=== PATIENT | male | born 1960 | race Caucasian/White ===

== ENCOUNTER 2016-07-06 19:29 | Emergency (ER) | payer BC ==
[~2016-07-06] VITALS: Ht 165.1 cm; Wt 88.0 kg
[~2016-07-06 19:29] MED LIST: LEVO137T2 PO; PANT20TA2 PO
[2016-07-06 19:30] VITALS: BP 176/103; PULSE 92; RESP 18; TEMP 98.1; O2SAT 98
[2016-07-06] MEDS ORDERED: SODIUM CHLOR 0.9% 1000 ML INJ 1,000 ML IV SCH (23:45)
[2016-07-06] MEDS ORDERED: ONDANSETRON HCL 4 MG/2 ML VIAL IVP ONE (23:45)
[2016-07-06] MEDS ORDERED: KETOROLAC TROMETHAMINE 30 MG/ML (IVP) VIAL IVP ONE (23:45)
[2016-07-07 00:32] LABS: BASOPHIL % 0.3 % (0.0-2.0); EOSINOPHIL % 0.4 % (0.0-4.0); HEMO FLAGS DIFF FINAL; LYMPH % 12.4 % (9.0-44.0); LYMPHOCYTE # 1.3 TH/MM3 (1.0-4.8); MEAN CELL VOLUME 86.6 FL (80.0-100.0); MEAN CORPUSCULAR HEMOGLOBIN 30.2 PG (27.0-34.0); MEAN CORPUSCULAR HGB CONC 34.9 % (32.0-36.0); MONO % 4.5 % (0.0-8.0); NEUT % 82.4 % (16.0-70.0); PLATELET COUNT 372 TH/MM3 (150-450); RED BLOOD COUNT 4.97 MIL/MM3 (4.50-5.90); RED CELL DISTRIBUTION WIDTH 12.9 % (11.6-17.2); WHITE BLOOD COUNT 10.9 TH/MM3 (4.0-11.0)
[2016-07-07 00:59] LABS: ALKALINE PHOSPHATASE 155 U/L (45-117); APTT (PATIENT) 32.2 SEC (24.3-30.1); INTERNATIONAL NORMALIZED RATIO 0.9 RATIO; PROTHROMBIN TIME - PATIENT 10.4 SEC (9.8-11.6); TOTAL BILIRUBIN ADULT 0.3 MG/DL (0.2-1.0)
[2016-07-07 01:41] LABS: ALT (GPT) 65 U/L (12-78); ANION GAP 6 MEQ/L (5-15); AST (GOT) 38 U/L (15-37); BICARBONATE 30.7 MEQ/L (21.0-32.0); BLOOD UREA NITROGEN 13 MG/DL (7-18); CHLORIDE 103 MEQ/L (98-107); GLOMERULAR FILTRATION RATE 63 ML/MIN (>89); POTASSIUM 4.1 MEQ/L (3.5-5.1); SODIUM (NA) 140 MEQ/L (136-145)
[2016-07-07] MEDS ORDERED: IOHEXOL 350 MG/ML 10 ML VIAL (for RAD DIAG) IV ONE (02:10)
--- NOTE | 2016-07-07 02:35 | RADRPT ---
EXAM DATE/TIME: 07/07/2016 02:09 [facility] COMPARISON: CT ABDOMEN & PELVIS W CONTRAST, July 18, 2010, 1:09. INDICATIONS : Left sided pain for 3 days. Vomiting today. IV CONTRAST: 95 cc Omnipaque 350 (iohexol) IV ORAL CONTRAST: No oral contrast ingested. RADIATION DOSE: 13.38 CTDIvol (mGy) MEDICAL HISTORY : Graves disease. SURGICAL HISTORY : Cholecystectomy. ENCOUNTER: Initial ACUITY: 1 day PAIN SCALE: 5/10 LOCATION: Left abdomen TECHNIQUE: Volumetric scanning of the abdomen and pelvis was performed. Using automated exposure control and ad justment of the mA and/or kV according to patient size, radiation dose was kept as low as reasonably achievable to obtain optimal diagnostic quality images. FINDINGS: LOWER LUNGS: The visualized lower lungs are clear. LIVER: Liver is slightly fatty infiltrated. No focal hepatic lesion seen. Previous cholecystectomy. SPLEEN: Normal size without lesion. PANCREAS: Within normal limits. KIDNEYS: Several small peripelvic cysts are again seen on the right, unchanged. ADRENAL GLANDS: Within normal limits. VASCULAR: There is no aortic aneurysm. BOWEL/MESENTERY: There is severe colitis of the descending colon, especially the mid to distal portion. There are dive rticula present. No abscess, perforation or obstruction. There is a small hiatal hernia. ABDOMINAL WALL: Within normal limits. RETROPERITONEUM: There is no lymphadenopathy. BLADDER: No wall thickening or mass. REPRODUCTIVE: Within normal limits. INGUINAL: There is no lymphadenopathy or hernia. MUSCULOSKELETAL: No acute bony abnormality demonstrated. CONCLUSION: 1. Acute colitis of the descending colon which is appears to be on the basis of diverticulitis. There is considerable wall thickening without a discrete mass. After resolution of the acute symptoms and if not done recently, colonoscopy is suggested. No abscess, perforation or obstruction. 2. Slight fatty infiltration of the liver. 3. Cholecystectomy since the prior CT. 4. Small peripelvic cysts of the right kidney unchanged. 5. Small hiatal hernia Chad Beasley MD on July 07, 2016 at 2:28 Board Certified Radiologist. This report was verified electronically.
[2016-07-07] MEDS ORDERED: CIPROFLOXACIN 400 MG PREMIX 200 ML IV ONE (03:00)
[2016-07-07] MEDS ORDERED: metroNIDAZOLE 500 MG INJ 100 ML IV ONE (03:00)
[2016-07-07 03:12] LABS: BLOOD, URINE TRACE (NEG); COMMENT (UR) CULT NOT INDICATED; CULTURE IF INDICATED CULT NOT INDICATED; GLUCOSE,URINE NEG (NEG); KETONE, URINE NEG (NEG); NITRITE,URINE NEG (NEG); PH, URINE 6.5 (5.0-8.5); URINE COLOR YELLOW (YELLW/STRAW)
--- NOTE | 2016-07-07 04:43 | PD ---
HPI Chief Complaint: Flank/Kidney Pain Time Seen by Provider: 23:14 Travel History International Travel<30 days: No Contact w/Intl Traveler<30days: No Traveled to known affect area: No History of Present Illness HPI Patient is a 55 year old male who comes in complaining of left sided abdominal pain. He says it started about 4 days ago. He says he thought it was due to constipation, but it did not improve after he had a bowel movement. He does say that the pain got worse after bowel movement. He had some nausea and vomiting today. He says the pain got worse today so he came in. He tried to look up his symptoms on the Internet and is wondering if he has diverticulitis. He says he has felt feverish, but he is not taken his temperature at home. He denies any chest pain or shortness of breath. PFSH Past Medical History Heart Rhythm Problems: No Cardiac Catheterization: No Cardiovascular Problems: Yes (HEART MURMUR) High Cholesterol: No Congestive Heart Failure: No Diabetes: No Thyroid Disease: Yes (GRAVES DISEASE - HYPOTHYROID) Past Surgical History Cholecystectomy: Yes Coronary Artery Bypass Graft: No Family History Family Myocardial Infarction: Yes (father,,,mild heart attack in his 60's) Social History Alcohol Use: No Tobacco Use: No Substance Use: No Allergies-Medications (Allergen,Severity, Reaction): Coded Allergies: No Known Allergies (Verified , 07/06/16) Reported Meds & Prescriptions Reported Meds & Active Scripts Active Levothyroxine (Levothyroxine Sodium) 137 Mcg Tab 137 Mcg PO DAILY Review of Systems Except as stated in HPI: all other systems reviewed are Neg General / Constitutional: Positive: Fever HENT: No: Headaches, Lightheadedness Cardiovascular: No: Chest Pain or Discomfort Respiratory: No: Shortness of Breath Gastrointestinal: Positive: Nausea, Vomiting, Abdominal Pain, Constipation Genitourinary: No: Dysuria Skin: No Rash, No Change in Pigmentation Physical Exam Narrative GENERAL: Awake and alert in no acute distress. SKIN: Warm and dry. HEAD: Atraumatic. Normocephalic. EYES: Pupils equal and round. No scleral icterus. ENT: Mucous membranes pink and moist. NECK: Trachea midline. No JVD. CARDIOVASCULAR: Regular rate and rhythm. No murmur appreciated. RESPIRATORY: No accessory muscle use. Clear to auscultation. Breath sounds equal bilaterally. GASTROINTESTINAL: Abdomen soft, nondistended. Tender to palpation of the left lower quadrant. No rebound or guarding. MUSCULOSKELETAL: No obvious deformities. No clubbing. No cyanosis. No edema. NEUROLOGICAL: Awake and alert. No obvious cranial nerve deficits. Motor grossly within normal limits. Normal speech. PSYCHIATRIC: Appropriate mood and affect; insight and judgment normal. Data Data Last Documented VS Vital Signs Date Time Temp Pulse Resp B/P Pulse Ox O2 Delivery O2 Flow Rate FiO2 07/06/16 19:30 98.1 92 18 176/103 98 Room Air Orders Complete Blood Count With Diff (07/06/16 23:45) Comprehensive Metabolic Panel (07/06/16 23:45) Prothrombin Time / Inr (Pt) (07/06/16 23:45) Act Partial Throm Time (Ptt) (07/06/16 23:45) Urinalysis - C+S If Indicated (07/06/16 23:45) Ua Includes Microscopic (07/06/16 23:45) Ct Abd/Pel W Iv Contrast(Rout) (07/06/16 23:45) Ondansetron Inj (Zofran Inj) (07/06/16 23:45) Sodium Chlor 0.9% 1000 Ml Inj (Ns 1000 M (07/06/16 23:45) Ketorolac Inj (Toradol Inj) (07/06/16 23:45) Iohexol 350 Inj (Omnipaque 350 Inj) (07/07/16 02:10) Ciprofloxacin 400 Mg Premix (Cipro 400 M (07/07/16 03:00) Metronidazole 500 Mg Inj (Flagyl 500 Mg (07/07/16 03:00) Labs Laboratory Tests Test 07/07/16 07/07/16 00:20 02:20 White Blood Count 10.9 TH/MM3 Red Blood Count 4.97 MIL/MM3 Hemoglobin 15.0 GM/DL Hematocrit 43.0 % Mean Corpuscular Volume 86.6 FL Mean Corpuscular Hemoglobin 30.2 PG Mean Corpuscular Hemoglobin 34.9 % Concent Red Cell Distribution Width 12.9 % Platelet Count 372 TH/MM3 Mean Platelet Volume 8.0 FL Neutrophils (%) (Auto) 82.4 % Lymphocytes (%) (Auto) 12.4 % Monocytes (%) (Auto) 4.5 % Eosinophils (%) (Auto) 0.4 % Basophils (%) (Auto) 0.3 % Neutrophils # (Auto) 9.0 TH/MM3 Lymphocytes # (Auto) 1.3 TH/MM3 Monocytes # (Auto) 0.5 TH/MM3 Eosinophils # (Auto) 0.0 TH/MM3 Basophils # (Auto) 0.0 TH/MM3 CBC Comment DIFF FINAL Differential Comment Prothrombin Time 10.4 SEC Prothromb Time International 0.9 RATIO Ratio Activated Partial 32.2 SEC Thromboplast Time Sodium Level 140 MEQ/L Potassium Level 4.1 MEQ/L Chloride Level 103 MEQ/L Carbon Dioxide Level 30.7 MEQ/L Anion Gap 6 MEQ/L Blood Urea Nitrogen 13 MG/DL Creatinine 1.21 MG/DL Estimat Glomerular Filtration 63 ML/MIN Rate Random Glucose 117 MG/DL Calcium Level 9.4 MG/DL Total Bilirubin 0.3 MG/DL Aspartate Amino Transf 38 U/L (AST/SGOT) Alanine Aminotransferase 65 U/L (ALT/SGPT) Alkaline Phosphatase 155 U/L Total Protein 8.2 GM/DL Albumin 3.5 GM/DL Urine Color YELLOW Urine Turbidity HAZY Urine pH 6.5 Urine Specific [place] 1.019 Urine Protein TRACE mg/dL Urine Glucose (UA) NEG mg/dL Urine Ketones NEG mg/dL Urine Occult Blood TRACE Urine Nitrite NEG Urine Bilirubin NEG Urine Urobilinogen LESS THAN 2.0 MG/DL Urine Leukocyte Esterase NEG Urine RBC 1 /hpf Urine WBC 2 /hpf Urine Amorphous Sediment RARE Microscopic Urinalysis Comment CULT NOT INDICATED MDM Medical Decision Making Medical Screen Exam Complete: Yes Emergency Medical Condition: Yes Differential Diagnosis Colitis versus diverticulitis versus UTI Narrative Course Patient is a 55-year-old male comes in complaining of left lower quadrant abdominal pain. Exam shows tenderness to left lower quadrant on palpation. IV established, labs sent. Patient given IV fluids, Toradol for pain. Labs show no acute abnormalities. CT of the abdomen and pelvis shows severe colitis, likely diverticulitis. Patient given a dose of Cipro and Flagyl here. Will be discharged home with prescriptions for Cipro and Flagyl. Patient advised not to drink alcohol while taking the Flagyl. Advised to take Tylenol or ibuprofen as needed for pain. Advised to increase his fiber to help with constipation. Patient has had a colonoscopy within the past year, which was noted to be normal. He is advised to follow-up with his gardener. Advised to return to the ED as needed for any worsening symptoms. Patient is comfortable with discharge at this time. Diagnosis Primary Impression: Diverticulitis Qualified Code: K57.32 - Diverticulitis of large intestine without perforation or abscess without bleeding Patient Instructions: Diverticulitis (ED), General Instructions Additional Instructions: Increase your fiber intake. Take all of your antibiotics. Take Tylenol or Ibuprofen for pain. Return to the ED for any worsening symptoms. Follow up with your doctors. Scripts Metronidazole (Flagyl)500 Mg Bix125 Mg PO TID 7 Days Ref 0 Prov:Bailey Nogueira MD 07/07/16 Ciprofloxacin (Cipro)500 Mg [id number] Mg PO BID 7 Days Ref 0 Prov:Bailey Nogueira MD 07/07/16 Disposition: 01 DISCHARGE HOME Condition: Stable Bailey Nogueira MD Jul 07, 2016 04:43
[2016-07-07] MEDS ORDERED: METR-1 PO (04:52)
[2016-07-07] MEDS ORDERED: CIPR-9 PO (04:52)
== END 2016-07-07 05:06 | disposition home or self-care (01) ==
LOC: NEPC 19:29
DX: K57.92 Diverticulitis of intestine, part unspecified, without perforation or abscess without bleeding (principal); E03.9 Hypothyroidism, unspecified
CPT/HCPCS: 74177; 80053; 81001; 85025; 85610; 85730; 96365; 96375; 99284; J0744; J1885; J2405; J7030; Q9967

== ENCOUNTER 2017-03-10 04:38 | Emergency (ER) | payer BC, OTHER ==
[~2017-03-10] VITALS: Ht 167.6 cm; Wt 90.0 kg
[~2017-03-10 04:38] MED LIST changes: -PANT20TA2 PO
[2017-03-10 04:41] VITALS: BP 176/105; PULSE 72; RESP 16; O2SAT 96
[2017-03-10] MEDS ORDERED: SODIUM CHLOR 0.9% 1000 ML INJ 1,000 ML IV ONE (05:04)
--- NOTE | 2017-03-10 05:04 | PD ---
HPI Chief Complaint: Flank/Kidney Pain Time Seen by Provider: 04:55 Travel History International Travel<30 days: No Contact w/Intl Traveler<30days: No Traveled to known affect area: No History of Present Illness HPI SUDDEN ONSET PAIN TO LEFT FLANK , [place], 8/10, NONRADIATING, WOKE HIM FROM SLEEP , DENIES HEMATURIA/N/V/D/FEVER/COUGH/, NO ALLEVIATING/AGGRAVATING FACTORS PMHX: GRAVES TX NOW ON SYNTHROID, DIVERTICULITIS PSHX: CHOLECYSTECTOMY AND ESOPHAGEAL DILATION ALL: NKDA PFSH Past Medical History Heart Rhythm Problems: No Cardiac Catheterization: No Cardiovascular Problems: Yes (HTN) High Cholesterol: No Congestive Heart Failure: No Diabetes: No Thyroid Disease: Yes (GRAVES DISEASE - HYPOTHYROID) Past Surgical History Cholecystectomy: Yes Coronary Artery Bypass Graft: No Other Surgery: Yes (ESOPHOGEAL DILATION) Family History Family Myocardial Infarction: Yes (father,,,mild heart attack in his 60's) Social History Alcohol Use: No Tobacco Use: No Substance Use: No Allergies-Medications (Allergen,Severity, Reaction): Coded Allergies: No Known Allergies (Verified , 03/10/17) Reported Meds & Prescriptions Reported Meds & Active Scripts Active Levothyroxine (Levothyroxine Sodium) 137 Mcg Tab 137 Mcg PO DAILY Review of Systems Except as stated in HPI: all other systems reviewed are Neg General / Constitutional: No: Fever Eyes: No: Visual changes HENT: No: Headaches Cardiovascular: No: Chest Pain or Discomfort Respiratory: No: Shortness of Breath Gastrointestinal: No: Abdominal Pain Genitourinary: Positive: Flank Pain Musculoskeletal: No: Pain Skin: No Rash Neurologic: No: Weakness Psychiatric: No: Depression Endocrine: No: Polydipsia Hematologic/Lymphatic: No: Easy Bruising Physical Exam Narrative GENERAL: SKIN: Warm and dry. HEAD: Atraumatic. Normocephalic. EYES: Pupils equal and round. No scleral icterus. No injection or drainage. ENT: No nasal bleeding or discharge. Mucous membranes pink and moist. NECK: Trachea midline. No JVD. CARDIOVASCULAR: Regular rate and rhythm. RESPIRATORY: No accessory muscle use. Clear to auscultation. Breath sounds equal bilaterally. GASTROINTESTINAL: Abdomen soft, non-tender, nondistended. MUSCULOSKELETAL: Extremities without clubbing, cyanosis, or edema. No obvious deformities. NEUROLOGICAL: Awake and alert. No obvious cranial nerve deficits. Motor grossly within normal limits. Five out of 5 muscle strength in the arms and legs. Normal speech. PSYCHIATRIC: Appropriate mood and affect; insight and judgment normal. Data Data Last Documented VS Orders Orders Complete Blood Count With Diff (03/10/17 05:04) Comprehensive Metabolic Panel (03/10/17 05:04) Urinalysis - C+S If Indicated (03/10/17 05:04) Ct Abd/Pel W/O Iv Contrast (03/10/17 05:04) Ecg Monitoring (03/10/17 05:04) Iv Access Insert/Monitor (03/10/17 05:04) Ketorolac Inj (Toradol Inj) (03/10/17 05:15) Morphine Inj (Morphine Inj) (03/10/17 05:15) Ondansetron Inj (Zofran Inj) (03/10/17 05:15) Sodium Chlor 0.9% 1000 Ml Inj (Ns 1000 M (03/10/17 05:04) Lipase (03/10/17 05:04) Ed Discharge Order (03/10/17 06:36) Labs Laboratory Tests Test 03/10/17 05:00 03/10/17 05:10 White Blood Count 8.7 TH/MM3 Red Blood Count 4.97 MIL/MM3 Hemoglobin 15.2 GM/DL Hematocrit 44.2 % Mean Corpuscular Volume 89.1 FL Mean Corpuscular Hemoglobin 30.5 PG Mean Corpuscular Hemoglobin Concent 34.3 % Red Cell Distribution Width 13.3 % Platelet Count 294 TH/MM3 Mean Platelet Volume 7.8 FL Neutrophils (%) (Auto) 49.8 % Lymphocytes (%) (Auto) 35.9 % Monocytes (%) (Auto) 7.5 % Eosinophils (%) (Auto) 6.0 % Basophils (%) (Auto) 0.8 % Neutrophils # (Auto) 4.3 TH/MM3 Lymphocytes # (Auto) 3.1 TH/MM3 Monocytes # (Auto) 0.7 TH/MM3 Eosinophils # (Auto) 0.5 TH/MM3 Basophils # (Auto) 0.1 TH/MM3 CBC Comment DIFF FINAL Differential Comment Blood Urea Nitrogen 11 MG/DL Creatinine 1.26 MG/DL Random Glucose 112 MG/DL Total Protein 7.5 GM/DL Albumin 3.7 GM/DL Calcium Level 8.8 MG/DL Alkaline Phosphatase 72 U/L Aspartate Amino Transf (AST/SGOT) 26 U/L Alanine Aminotransferase (ALT/SGPT) 31 U/L Total Bilirubin 0.3 MG/DL Sodium Level 140 MEQ/L Potassium Level 4.0 MEQ/L Chloride Level 105 MEQ/L Carbon Dioxide Level 27.5 MEQ/L Anion Gap 8 MEQ/L Estimat Glomerular Filtration Rate 60 ML/MIN Lipase 118 U/L Urine Color YELLOW Urine Turbidity HAZY Urine pH 5.0 Urine Specific [place] 1.020 Urine Protein TRACE mg/dL Urine Glucose (UA) NEG mg/dL Urine Ketones NEG mg/dL Urine Occult Blood LARGE Urine Nitrite NEG Urine Bilirubin NEG Urine Urobilinogen LESS THAN 2.0 MG/DL Urine Leukocyte Esterase NEG Urine RBC 98 /hpf Urine WBC 1 /hpf Urine Squamous Epithelial Cells <1 /hpf Urine Renal Epithelial Cells <1 /hpf Urine Bacteria RARE /hpf Urine Hyaline Casts 3 /lpf Urine Mucus MOD /lpf Microscopic Urinalysis Comment CULT NOT INDICATED MDM Medical Decision Making Medical Screen Exam Complete: Yes Emergency Medical Condition: Yes Medical Record Reviewed: Yes Differential Diagnosis PYELONEPHRITIS V KIDNEY STONES V COLITIS V DIVERTICULITIS V SPLEEN Narrative Course UA SHOWED HEMATURIA, CT ABD DID NOT SHOW ANY ACTIVE PASSING STONE, THERE IS A HYPERDENSE STONE LIKE STRUCTURE INSIDE BLADDER RAISING THE POSSIBLITY OF A QUICK TRANSIT KIDNEY STONE. Diagnosis Primary Impression: KIDNEY STONE Disposition: 01 DISCHARGE HOME Condition: Stable Walter Topete MD Mar 10, 2017 05:03
[2017-03-10] MEDS ORDERED: ONDANSETRON HCL 4 MG/2 ML VIAL IV PUSH ONE (05:15)
[2017-03-10] MEDS ORDERED: MORPHINE SULFATE 4 MG/ML INJ IV PUSH ONE (05:15)
[2017-03-10] MEDS ORDERED: KETOROLAC TROMETHAMINE 30 MG/ML (IVP) VIAL IV PUSH ONE (05:15)
[2017-03-10 05:22] LABS: AUTOMATED NEUTROPHIL # 4.3 TH/MM3 (1.8-7.7); BASOPHIL # 0.1 TH/MM3 (0-0.2); BASOPHIL % 0.8 % (0.0-2.0); EOSINOPHIL # 0.5 TH/MM3 (0-0.4); HEMATOCRIT 44.2 % (39.0-51.0); HEMO FLAGS DIFF FINAL; LYMPH % 35.9 % (9.0-44.0); LYMPHOCYTE # 3.1 TH/MM3 (1.0-4.8); MEAN CELL VOLUME 89.1 FL (80.0-100.0); MEAN CORPUSCULAR HEMOGLOBIN 30.5 PG (27.0-34.0); MEAN CORPUSCULAR HGB CONC 34.3 % (32.0-36.0); MONO % 7.5 % (0.0-8.0); NEUT % 49.8 % (16.0-70.0); PLATELET COUNT 294 TH/MM3 (150-450); RED BLOOD COUNT 4.97 MIL/MM3 (4.50-5.90); RED CELL DISTRIBUTION WIDTH 13.3 % (11.6-17.2); WHITE BLOOD COUNT 8.7 TH/MM3 (4.0-11.0)
[2017-03-10 05:31] VITALS: BP 140/98; PULSE 65; RESP 18; O2SAT 95
[2017-03-10 05:35] LABS: BACTERIA, URINE RARE /hpf; BLOOD, URINE LARGE (NEG); COMMENT (UR) CULT NOT INDICATED; CULTURE IF INDICATED CULT NOT INDICATED; GLUCOSE,URINE NEG (NEG); HYALINE CAST, URINE 3 /lpf (RARE); KETONE, URINE NEG (NEG); MUCUS URINE MOD /lpf (OCC); NITRITE,URINE NEG (NEG); RENAL EPITHELIAL CELLS <1 /hpf; SQUAMOUS EPITHELIAL CELL URINE <1 /hpf (0-5); URINE COLOR YELLOW (YELLW/STRAW)
[2017-03-10 05:37] VITALS: BP 143/69; PULSE 69; RESP 18; O2SAT 95
--- NOTE | 2017-03-10 05:38 | RADRPT ---
EXAM DATE/TIME: 03/10/2017 05:13 [facility] COMPARISON: No previous studies available for comparison. INDICATIONS : Left flank pain starting this morning. ORAL CONTRAST: No oral contrast ingested. RADIATION DOSE: 12.63 CTDIvol (mGy) MEDICAL HISTORY : Hypertension. Graves disease. SURGICAL HISTORY : Cholecystectomy. ENCOUNTER: Initial ACUITY: 1 day PAIN SCALE: 4/10 LOCATION: Left flank TECHNIQUE: Volumetric scanning of the abdomen and pelvis was performed. Using automated exposure control and ad justment of the mA and/or kV according to patient size, radiation dose was kept as low as reasonably achievable to obtain optimal diagnostic quality images. DICOM format image data is available electro nically for review and comparison. FINDINGS: Examination of the lung bases demonstrates no abnormality. No pleural fluid is identified. No pulmona ry nodules are present. A small hiatal hernia is present. The liver and spleen are normal in size and no focal defects are identified. The gallbladder is absent. The pancreas demonstrates normal contour without evidence of mass or ductal dilatation. The adrenal glands and kidneys appear normal bilatera lly. No hydronephrosis or mass lesions are identified. Examination of the pelvis demonstrates no evidence of free fluid or pelvic mass. No abnormally enlarg ed inguinal or retroperitoneal lymph nodes are present. The bladder is unremarkable. There is diverti culosis without evidence of diverticulitis. CONCLUSION: 1. No evidence of acute abdominal or pelvic process. No masses are identified. No renal stones are id entified. 2. Diverticulosis without evidence of diverticulitis. Gustabo Marte MD on March 10, 2017 at 5:35 Board Certified Radiologist. This report was verified electronically.
[2017-03-10 05:58] LABS: ALKALINE PHOSPHATASE 72 U/L (45-117); ALT (GPT) 31 U/L (12-78); TOTAL BILIRUBIN ADULT 0.3 MG/DL (0.2-1.0)
[2017-03-10 05:59] LABS: ANION GAP 8 MEQ/L (5-15); AST (GOT) 26 U/L (15-37); BICARBONATE 27.5 MEQ/L (21.0-32.0); BLOOD UREA NITROGEN 11 MG/DL (7-18); CHLORIDE 105 MEQ/L (98-107); GLOMERULAR FILTRATION RATE 60 ML/MIN (>89); SODIUM (NA) 140 MEQ/L (136-145)
[2017-03-10 06:00] VITALS: BP 135/83; PULSE 65; RESP 16; O2SAT 93
[2017-03-10 07:35] VITALS: BP 118/74; PULSE 80
== END 2017-03-10 08:55 | disposition home or self-care (01) ==
LOC: NEPC 04:38
DX: N20.0 Calculus of kidney (principal); I10 Essential (primary) hypertension; E03.9 Hypothyroidism, unspecified
CPT/HCPCS: 74176; 80053; 81001; 83690; 85025; 96361; 96374; 96375; 99285; J1885; J2270; J2405; J7030